=== PATIENT | male | born 1945 | race African-American/Black ===

== ENCOUNTER 2016-07-22 19:40 | Emergency (ER) | payer MEDICARE, MEDICAID ==
[~2016-07-22] VITALS: Ht 188 cm; Wt 102.1 kg
[2016-07-22 20:32] VITALS: BP 106/67
[2016-07-22] MEDS ORDERED: Naproxen 500mg tab ORAL ONE (20:45)
[2016-07-22] MEDS ORDERED: COLCHICINE0.6 M1 PO (20:48)
[2016-07-22 21:00] VITALS: BP 106/67
--- NOTE | 2016-07-22 21:42 | Emergency Room Report ---
History of Present Illness General Chief Complaint: Pain Source: Patient Present Illness HPI The patient is a 70-year-old male with a history of gout presenting for right ankle pain. Patient states that he ate hot dogs and then noticed pain to the right ankle. The patient states that he usually gets gout in the big toe but has had gout in the ankle in the past. The pain is described as an 8/10 dull ache it is worse with walking. Pain does not radiate. No numbness or tingling. The patient has not had medications for this. The patient denies any known injury to the ankle. The patient denies any other symptoms Allergies: Coded Allergies: No Known Allergies (Unverified , 07/22/16) Patient History Past Medical History: see triage record Pertinent Family History: none Reviewed Nursing Documentation: PMH: Agreed, PSxH: Agreed Review of Systems All Other Systems: negative except mentioned in HPI Physical Exam Vital Signs Date Time Temp Pulse Resp B/P Pulse Ox O2 Delivery O2 Flow Rate FiO2 07/22/16 20:16 97.0 103 17 106/67 98 Room Air Sp02 EP Interpretation: reviewed, normal General Appearance: no apparent distress, alert, GCS 15, non-toxic Head: normocephalic, atraumatic Eyes: bilateral eye PERRL, bilateral eye normal inspection Musculoskeletal: back normal, gait/station normal, normal range of motion, swelling - 1+ non pitting edema to anterior ankle, tender - TTP diffusely over R ankle Neurologic: alert, oriented x3, responsive, motor strength/tone normal, sensory intact, normal gait, speech normal Psychiatric: judgement/insight normal, memory normal, mood/affect normal, no suicidal/homicidal ideation Reflexes: 3+ bicep (R), 3+ bicep (L), 3+ tricep (R), 3+ tricep (L), 3+ knee (R) , 3+ knee (L) Skin: normal color, no rash, warm/dry, well hydrated Lymphatic: no adenopathy Medical Decision Making PA Attestation Dr. Lopez is my supervising physician. Patient management was discussed with my supervising physician Diagnostic Impression: Primary Impression: Gout attack ER Course The patient is a 70-year-old male with a history of gout presenting with right ankle pain Differential diagnosis considered: Gout, arthritis, septic joint, sprain, fracture Physical exam: Afebrile. No apparent distress Right ankle: Full active range of motion. Sensation intact to light touch. No erythema. Skin warm and dry. There is 1+ nonpitting edema to the anterior ankle and diffuse tenderness to palpation. Normal gait The patient is given Naprosyn in the emergency department The patient will be discharged home with prescription for colchicine and states that this has helped him in the past for similar gout attacks. ER precautions are given and the patient will follow up with primary care physician Last Vital Signs Date Time Temp Pulse Resp B/P Pulse Ox O2 Delivery O2 Flow Rate FiO2 07/22/16 20:32 97.0 79 17 106/67 98 Room Air Status: improved Disposition: HOME, SELF-CARE Condition: Improved Scripts Colchicine (Colchicine) 0.6 Mg Capsule 0.6 MG PO PRN, #6 CAP Prov: QUYEN GRIMALDO 07/22/16 Patient Instructions: Ankle Pain, Gout Additional Instructions: I discussed my findings with the patient. All questions and concerns have been answered. Treatment and medication compliance have been addressed. I advised the patient that they need to follow up with PMD in 3-5 days. Return to ED if symptoms worsen, new symptoms arise, or if needed for any reason. Patient verbalized understanding of discharge instructions. QUYEN GRIMALDO Jul 22, 2016 21:42
== END 2016-07-22 21:00 | disposition home or self-care (01) ==
LOC: EMR 20:18
DX: M10.9 Gout, unspecified (principal)
CPT/HCPCS: 99283